=== PATIENT | female | born 1990 | race Caucasian/White ===

== ENCOUNTER 2019-08-09 03:24 | Emergency (ER) | payer OTHER ==
[~2019-08-09] VITALS: Ht 152.4 cm; Wt 51.7 kg
[2019-08-09 03:30] VITALS: BP 118/78
[2019-08-09] MEDS ORDERED: cefTRIAXone 2,000 MG in DEXTROSE 5% 100 ML IV ONE (04:30)
[2019-08-09] MEDS ORDERED: MORPHINE SULFATE 4 MG/ML SYR IVP ONE (04:30)
[2019-08-09] MEDS ORDERED: NACL 0.9% 1,000 ML IV ONE (04:30)
[2019-08-09] MEDS ORDERED: ONDANSETRON 4 MG/2 ML VIAL IVP ONE (04:30)
[2019-08-09] MEDS ORDERED: cefTRIAXone 2,000 MG VIAL ONE (04:35)
[2019-08-09 04:41] LABS: APPEARANCE,URINE HAZY (CLEAR); BILIRUBIN,URINE NEGATIVE (NEGATIVE); BLOOD, URINE 3+ (NEGATIVE); COLOR,URINE YELLOW (YELLOW); LEUKOCYTE ESTERASE ,URINE 3+ (NEGATIVE); NITRITE, URINE NEGATIVE (NEGATIVE); PH,URINE 6.5 (5.0-9.0); UGLUCOSE NEGATIVE (NEGATIVE)
[2019-08-09 04:57] LABS: BASOPHILS # (AUTO) 0.1 K/uL (0.00-0.22); BASOPHILS % (AUTO) 0.4 % (0.0-2.0); EOSINOPHILS # (AUTO) 0.1 K/uL (0-0.4); EOSINOPHILS % (AUTO) 0.5 % (0.0-4.0); HEMATOCRIT 44.3 % (36-48); HEMOGLOBIN 14.6 g/dL (12.0-16.0); LYMPHOCYTES # (AUTO) 1.8 K/uL (2.5-16.5); LYMPHOCYTES % (AUTO) 12.4 % (20.5-51.1); MEAN CORPUSCULAR HEMOGLOBIN 30 pg (27-31); MEAN CORPUSCULAR HGB CONC 33 g/dL (33-37); MEAN CORPUSCULAR VOLUME 89.5 fL (80-94); MONOCYTES # (AUTO) 0.5 K/uL (0.8-1.0); MONOCYTES % (AUTO) 3.4 % (1.7-9.3); NEUTROPHILS # (AUTO) 12.3 K/uL (1.8-7.7); NEUTROPHILS % (AUTO) 83.3 % (42.2-75.2); PLATELET COUNT (AUTO) 254 K/uL (140-450); RED BLOOD CELL COUNT(AUTO) 4.95 MIL/uL (4.20-5.40); RED CELL DISTRIBUTION WIDTH 14.7 % (11.6-13.7); WHITE BLOOD COUNT (AUTO) 14.7 K/uL (4.8-10.8)
[2019-08-09 05:03] LABS: RBC,URINE TOO NUMEROUS TO COUN /HPF (0-5); WBC,URINE TOO MANY TO COUNT /HPF (0-5)
[2019-08-09 05:11] LABS: ALBUMIN 4.7 g/dL (3.4-5.0); ANION GAP 17.3 (8-16); CARBON DIOXIDE 25.6 mmol/L (21-32); CREATININE 0.9 mg/dL (0.6-1.3); POTASSIUM 3.9 mmol/L (3.5-5.1); TOTAL BILIRUBIN 0.9 mg/dL (0.0-1.0)
[2019-08-09 06:35] VITALS: BP 118/78
== END 2019-08-09 06:35 | disposition home or self-care (01) ==
LOC: MED 03:24
DX: N12 Tubulo-interstitial nephritis, not specified as acute or chronic (principal)
CPT/HCPCS: 36415; 74176; 80053; 81001; 81025; 85025; 87040; 87086; 87186; 96365; 96375; 99284; J0696; J2270; J2405; J7030

== ENCOUNTER 2020-11-28 08:17 | Emergency (ER) | payer OTHER ==
[~2020-11-28] VITALS: Ht 152.4 cm; Wt 61.2 kg
[2020-11-28 08:20] VITALS: BP 108/65
--- NOTE | 2020-11-28 08:28 | NUR ---
pt ambulated to bed 08.
--- NOTE | 2020-11-28 08:35 | NUR ---
Dr. Loya at the bedside evaluating patient.
--- NOTE | 2020-11-28 08:37 | NUR ---
30 Y/O F BIB SPOUSE FROM HOME, PT WENT TO URGENT CARE YESTERDAY AND WAS TOLD TO COME IF PAIN WORSENS. C/O HEMATURIA AND LOW BACK PAIN 3 DAYS AGO. SHARP 8/10 PAIN, WORSENS WITH MOVEMENT. DENIES DYSURIA, ABD PAIN OR PELVIC PAIN. DENIES N/V/D PMH: DENIES (PT STATES SHE HAS A HX OF KIDNEY INFECTIONS) MED: CEPHALEXIN NKA
[2020-11-28] MEDS: NACL 0.9% 1,000 ML IV ONE (09:12)
[2020-11-28] MEDS: KETOROLAC 30 MG/ML VIAL IVP ONE (09:15)
[2020-11-28 09:22] LABS: BASOPHILS % (AUTO) 0.4 % (0.0-2.0); EOSINOPHILS # (AUTO) 0.1 K/uL (0-0.4); EOSINOPHILS % (AUTO) 1.1 % (0.0-4.0); HEMATOCRIT 41.6 % (36-48); LYMPHOCYTES # (AUTO) 1.5 K/uL (2.5-16.5); MEAN CORPUSCULAR HEMOGLOBIN 31 pg (27-31); MEAN CORPUSCULAR HGB CONC 34 g/dL (33-37); MONOCYTES # (AUTO) 0.3 K/uL (0.8-1.0); MONOCYTES % (AUTO) 4.5 % (1.7-9.3); NEUTROPHILS # (AUTO) 4.9 K/uL (1.8-7.7); PLATELET COUNT (AUTO) 223 K/uL (140-450); RED BLOOD CELL COUNT(AUTO) 4.48 MIL/uL (4.20-5.40); WHITE BLOOD COUNT (AUTO) 6.8 K/uL (4.8-10.8)
[2020-11-28 09:33] LABS: ALBUMIN 4.4 g/dL (3.4-5.0); ANION GAP 13.3 (8-16); CREATININE 0.7 mg/dL (0.6-1.3); POTASSIUM 4.3 mmol/L (3.5-5.1); TOTAL BILIRUBIN 1.2 mg/dL (0.0-1.0)
[2020-11-28 09:33] LABS: APPEARANCE,URINE CLEAR (CLEAR); BILIRUBIN,URINE NEGATIVE (NEGATIVE); BLOOD, URINE 1+ (NEGATIVE); COLOR,URINE YELLOW (YELLOW); LEUKOCYTE ESTERASE ,URINE NEGATIVE (NEGATIVE); NITRITE, URINE NEGATIVE (NEGATIVE); PH,URINE 6.5 (5.0-9.0); UGLUCOSE NEGATIVE (NEGATIVE)
--- NOTE | 2020-11-28 09:43 | NUR ---
Patient ambulated to the restroom with a steady gait.
[2020-11-28 09:50] LABS: RBC,URINE NONE SEEN /HPF (0-5); WBC,URINE 0-5 /HPF (0-5)
--- NOTE | 2020-11-28 10:00 | NUR ---
Pt taken to CT via w/c accompanied by operating room surgical technologisthuy Vilchis.
--- NOTE | 2020-11-28 10:00 | NUR ---
Patient taken to CT by engineering technology instructor via wheelchair.
--- NOTE | 2020-11-28 10:11 | NUR ---
Patient returned from CT via wheelchair transported by radiology therapist
--- NOTE | 2020-11-28 10:55 | NUR ---
Dr. Loya at the bedside reevaluating the patient.
[2020-11-28] MEDS ORDERED: IBUP-2213 PO (11:08)
[2020-11-28 11:29] VITALS: BP 110/58
== END 2020-11-28 11:29 | disposition home or self-care (01) ==
LOC: MED 08:17
DX: R31.9 Hematuria, unspecified (principal); Z79.899 Other long term (current) drug therapy
CPT/HCPCS: 36415; 71045; 74177; 80053; 81001; 81025; 85025; 87086; 87491; 96361; 96374; 99285; J1885; J7030; Q9967

== ENCOUNTER 2022-03-28 06:05 | Emergency (ER) | payer OTHER ==
[~2022-03-28] VITALS: Ht 152.4 cm; Wt 56.2 kg
[~2022-03-28 06:05] MED LIST: IBUP-2213 PO
[2022-03-28 06:15] VITALS: BP 131/88
--- NOTE | 2022-03-28 06:25 | NUR ---
Patient in bed 5.
--- NOTE | 2022-03-28 06:40 | NUR ---
Patient A/Ox4, lying in bed resting comfortably, chest rise and fall symmetrical, no s/s of distress.
--- NOTE | 2022-03-28 07:00 | NUR ---
Patient A/Ox4, lying in bed resting comfortably, chest rise and fall symmetrical, no s/s of distress.
--- NOTE | 2022-03-28 07:17 | NUR ---
Change of shift report given to AM shift nurse Briana. AM shift nurse Briana verbalized understanding of report, no further questions.
[2022-03-28] MEDS ORDERED: NACL 0.9% 1,000 ML IV ONE (07:20)
[2022-03-28] MEDS ORDERED: ACETAMINOPHEN EXTRA STRENGTH 500 MG TAB PO ONE (07:20)
--- NOTE | 2022-03-28 07:20 | NUR ---
Report recieved from MARIO ALBERTO Worthy for transfer of care.
--- NOTE | 2022-03-28 07:53 | NUR ---
Dr. Keller re-evaluating patient at bedside.
[2022-03-28 08:59] VITALS: BP 109/65
--- NOTE | 2022-03-28 08:59 | NUR ---
Patient discharged with v/s stable. Written and verbal after care instructions given. Patient verbalized understanding. Ambulatory with steady gait. All questions addressed prior to discharge. Advised to follow up with PMD.
--- NOTE | 2022-03-28 08:59 | NUR ---
The patient's care was reviewed and supervised by Maame Esparza RN.
== END 2022-03-28 08:59 | disposition home or self-care (01) ==
LOC: MED 06:05
DX: U07.1 COVID-19 (principal); E86.0 Dehydration; B34.9 Viral infection, unspecified; Z79.1 Long term (current) use of non-steroidal anti-inflammatories (NSAID)
CPT/HCPCS: 87426; 87804; 96360; 99283; J7030